=== PATIENT | male | born 1950 | race Caucasian/White ===

== ENCOUNTER 2016-11-13 11:14 | Day surgery (SDC) | payer BC ==
[~2016-11-13] VITALS: Ht 177.8 cm; Wt 138.8 kg
[~2016-11-13 11:14] MED LIST: BUPIVACAINE-EPI 0.25%-1:200000 50 ML VIAL. ONE; HYDROmorphone 2 MG/ML VIAL IV PRN; IOHEXOL 300 MG/ML 50 ML VIAL. ONE; IV RINGERS,LACTATED 1000ML 1,000 ML IV SCH; LIDOCAINE 1% 1 ML SYRINGE. ID PRN; MORPHINE SULFATE 2 MG/ML DISP.SYRIN. IV PRN; ONDANSETRON PF 4 MG/2 ML VIAL. IV PRN; PROCHLORPERAZINE 10 MG/2 ML VIAL. IV PRN; SURGICEL HEMOSTAT 4X8 EACH. ONE; fentaNYL PF VIAL 100 MCG/2 ML VIAL IV PRN
[2016-11-13] MEDS ORDERED: LISI1TAB7 PO (12:13)
[2016-11-13] MEDS ORDERED: fentaNYL PF VIAL 100 MCG/2 ML VIAL ONE ×2 (12:14→14:01)
[2016-11-13] MEDS ORDERED: OXYB5TAB7 PO (12:14)
[2016-11-13] MEDS ORDERED: ONDANSETRON PF 4 MG/2 ML VIAL. ONE (12:14)
[2016-11-13] MEDS ORDERED: PROPOFOL 20 ML IV ONE ×2 (12:14→14:11)
[2016-11-13] MEDS ORDERED: LIDOCAINE 2% PF Vial for OR 5 ML VIAL. ONE (12:14)
[2016-11-13] MEDS ORDERED: ROCURONIUM 50 MG/5 ML VIAL. ONE (12:14)
[2016-11-13] MEDS ORDERED: DEXAMETHASONE SOD PHOS 20 MG/5 ML VIAL. ONE (12:14)
[2016-11-13] MEDS ORDERED: PROAIR HFA8.5 GM INH (12:14)
[2016-11-13] MEDS ORDERED: MIDAZOLAM HCL/PF 2 MG/2 ML VIAL. ONE (12:14)
[2016-11-13] MEDS ORDERED: ATOR20TA58 PO (12:14)
[2016-11-13] MEDS ORDERED: FAMO20TA5 PO (12:15)
[2016-11-13] MEDS ORDERED: MULT-208 PO (12:15)
[2016-11-13] MEDS ORDERED: FISH1CAP PO (12:15)
[2016-11-13] MEDS ORDERED: MELO-150 PO (12:15)
[2016-11-13] MEDS ORDERED: GLUC1CAP18 PO (12:16)
[2016-11-13] MEDS ORDERED: CETI10TA22 PO (12:17)
[2016-11-13] MEDS ORDERED: ACET650T8 PO (12:17)
[2016-11-13] MEDS ORDERED: SUCCINYLCHOLINE 200 MG/10 ML VIAL. ONE (13:11)
[2016-11-13] MEDS ORDERED: ePHEDrine PF IN SALINE 50 MG/5 ML DISP.SYRIN IV ONE (13:43)
[2016-11-13] MEDS ORDERED: KETOROLAC 30 MG/ML INJ FOR OR. INJ ONE (14:10)
[2016-11-13] MEDS ORDERED: GLYCOPYRROLATE 1 MG/5 ML VIAL. ONE (14:12)
[2016-11-13] MEDS ORDERED: NEOSTIGMINE METHYLSULFATE 5 MG/5 ML SYRINGE. ONE (14:13)
[2016-11-13] MEDS ORDERED: SEVOFLURANE 61 TO 120 MINUTES. IH ONE (14:15)
[2016-11-13] MEDS ORDERED: DESFLURANE 61 TO 120 MINUTES IH ONE (14:17)
--- NOTE | 2016-11-13 14:24 | PDOC ---
BRIEF OPERATIVE NOTE Date: Nov 13, 2016 Pre-Op Diagnosis Biliary dyskenisia Post-Op Diagnosis Same Procedure Performed L/S cholecystectomy Surgeon Karl Anesthesia Type: General Blood Loss 10ml Specimens Obtained Gallbladder Findings as above Complications None DUSTY EDMONDSON MD Nov 13, 2016 14:24
--- NOTE | 2016-11-13 14:25 | DISCH ---
DISCHARGE INSTRUCTIONS Condition on Discharge Condition on Discharge: Stable Activity After Discharge Activity Instructions for Disc: Avoid exertion Other activity instructions: No lifting >20lbs for 2 weeks Diet after Discharge Diet after Discharge: Low Fat Wound Incision Care Other wound/incision instructi: May shower in 24 hours Contacting the after DC Call your doctor for: If your condition worsens Follow-Up Follow up with: Dr Edmondson in 2 weeks DUSTY EDMONDSON MD Nov 13, 2016 14:25
[2016-11-13] MEDS ORDERED: oxyCODONE/APAP 5/325 1 TAB TABLET PO ONE (15:15)
[2016-11-13 16:15] VITALS: BP 163/79
--- NOTE | 2016-11-13 19:12 | OP ---
DATE OF SURGERY: 11/13/2016 PREOPERATIVE DIAGNOSIS: Biliary dyskinesia. POSTOPERATIVE DIAGNOSIS: Biliary dyskinesia. PROCEDURE: Laparoscopic cholecystectomy. SURGEON: Lna Edmondson M.D. INDICATIONS: The patient is a 66-year-old gentleman, who complaining of right upper quadrant abdominal pain, nausea after eating, HIDA scan showing ejection fraction only 23% with recurrence of pain on the ____ infection. PROCEDURE: Laparoscopic cholecystectomy was explained to the patient in detail. Risks, benefits were also discussed including bleeding, infection, injury to intra-abdominal contents, possibly sustaining further open operations. Alternatives of this procedure were also discussed with the patient, who seemed to understand and gave verbal and written consent to have the procedure performed. DESCRIPTION OF PROCEDURE: The patient was taken to the operating room and placed in the supine position, general anesthesia was initiated. Once the patient was asleep and intubated, his abdomen was prepped and draped in usual sterile fashion using ChloraPrep. An area just below the umbilicus injected with 0.25% Marcaine with epinephrine. Incision was made with an 11 blade scalpel and a Veress needle was placed within the abdomen and pneumoperitoneum was achieved. Once this was complete, an 11 mm port was placed and a 5 mm camera was placed within the abdomen. Abdomen was inspected. No other abnormalities were noted. At this point, three 5 mm ports were then placed under direct visualization, one in the epigastrium, 2 in the right upper quadrant. The dome of the gallbladder was grasped and retracted cephalad. The infundibulum of the gallbladder was grasped and retracted laterally exposing the triangle of Calot. Adherent tissues of the triangle were taken down exposing the cystic duct and cystic artery. Both were doubly clipped and transected. The gallbladder was taken off the liver with hook electrocautery, placed in EndoCatch bag and removed from the umbilicus. Right upper quadrant was irrigated and suctioned dry. Hemostasis seemed to be appropriate and the pneumoperitoneum was reduced. All ports were removed. The fascial defect at the umbilicus closed with [id number] Vicryl suture and the skin was reapproximated at all port sites with 4-0 subcuticular Monocryl. Mastisol, Steri-Strips and Band-Aids were applied as dressings. The patient was awakened, extubated in the operating room, taken to recovery in stable condition. All sponge and instrument counts listed as correct. Estimated blood loss 10 mL. LAN EDMONDSON MD DR: FACUNDO/helene JOB#: [id number] / [id number]
--- NOTE | 2016-11-16 11:43 | PATHOLOGY ---
PATHOLOGY REPORT * * * * * * * * FINAL DIAGNOSIS: Gallbladder, laparoscopic cholecystectomy: - Cholesterolosis. - Chronic cholecystitis. COMMENT: There are no calculi identified within the gallbladder lumen or specimen container. There is no evidence of malignancy. REPORT ELECTRONICALLY SIGNED BY: Aneesh Vines M.D. DATE/TIME: 11/16/2016 11:42 * * * * * * * * GROSS PATHOLOGY: Received in formalin labeled "Billy Pena, gallbladder with contents," is a 7.1 x 2.3 x 2.0 cm, previously punctured/torn gallbladder with green mac serosal surfaces. Opening the gallbladder reveals velvety and bile-stained mucosa with moderate, diffuse cholesterolosis and an average wall thickness of 0.1 cm. Calculi are not present and no masses are noted grossly. Barrel Reamer sections from the body and fundus are submitted along with the proximal margin in cassette A1. (KAH; 11/15/2016) INITIAL CPT CODE(S): A; 68354 Professional services performed [place] [facility] [place] [address] Technical services performed by [facility] at [address] [place] [address], [facility] [address] [address]. SPECIMEN(S) RECEIVED: A.Gallbladder and contents CLINICAL HISTORY: Biliary dyskinesia PATIENT: BILLY PENA /AGE: 1205/18/1950 (Age: 66) PATIENT #: [id number] ALT CASE #: SPECIMEN COLLECTION DATE: 11/13/2016 SPECIMEN RECEIVED DATE: 11/14/2016 [facility] - [address] [place] [address] - PHONE: [phone] * * * END OF REPORT * * *
== END 2016-11-13 16:24 | disposition home or self-care (01) ==
LOC: SURG 11:14
PROVIDERS: ATTEND Surgery
DX: K82.8 Other specified diseases of gallbladder (principal); E78.00 Pure hypercholesterolemia, unspecified; I10 Essential (primary) hypertension; J45.909 Unspecified asthma, uncomplicated; E66.9 Obesity, unspecified; K21.9 Gastro-esophageal reflux disease without esophagitis; M19.90 Unspecified osteoarthritis, unspecified site
CPT/HCPCS: 47562; C1782; J0330; J0690; J1100; J1885; J2250; J2405; J2704; J2710; J3010; J3490; J7030; J7120; Q9967